=== PATIENT | male | born 1980 | race Caucasian/White ===

== ENCOUNTER 2022-07-27 06:42 | Emergency (ER) | payer OTHER ==
[~2022-07-27] VITALS: Ht 190.5 cm; Wt 90.0 kg
[2022-07-27] MEDS ORDERED: FLUMAZENIL 0.1 MG/ML INJ 10ML MDV IV ONE (08:04)
[2022-07-27] MEDS ORDERED: KETOROLAC TROMETH 60MG/2ML VIAL IM ONE (08:45)
[2022-07-27 09:33] VITALS: BP 170/89
== END 2022-07-27 09:34 | disposition home or self-care (01) ==
LOC: EDBD 06:42 → ER 06:42
DX: N43.3 Hydrocele, unspecified (principal); M79.18 Myalgia, other site; F17.210 Nicotine dependence, cigarettes, uncomplicated
CPT/HCPCS: 76870; 96372; 99285; J1885